=== PATIENT | female | born 1950 | race Caucasian/White ===

== ENCOUNTER 2019-06-08 08:37 | Outpatient (CLI) | payer MEDICARE ==
--- NOTE | 2019-06-08 10:03 | RAD ---
ESOPHAGRAM: HISTORY: 69-year-old female with gastroesophageal reflux. Patient had a gastric banding procedure don e in the past. FINDINGS: Swallowing was grossly normal. The positioning of the gastric band appears appropriate. A moderate-si zed hiatal hernia is present with slow passage of contrast into the stomach via the gastric banding site. No contrast extravasation is seen.
== END 2019-06-08 08:38 | disposition home or self-care (01) ==
LOC: RAD 08:37
PROVIDERS: ATTEND Surgery
DX: K21.9 Gastro-esophageal reflux disease without esophagitis (principal)
CPT/HCPCS: 74220

== ENCOUNTER 2019-10-23 08:24 | Day surgery (SDC) | payer OTHER ==
[2019-10-20 15:34] VITALS: BMI 33.6
--- NOTE | 2019-10-23 08:17 | HP ---
CHIEF COMPLAINT: Severe reflux. HISTORY OF PRESENT ILLNESS: The patient is a 69-year-old female with a lap band, but having tremendous reflux. She had her band emptied. She continues to have reflux. She is here to have her band and port removed. PAST MEDICAL HISTORY: Obesity. PAST SURGICAL HISTORY: Lap band, bilateral knee replacement, hysterectomy, and left shoulder surgery. MEDICATIONS: Nexium. ALLERGIES: SHE HAS NO KNOWN DRUG ALLERGIES. FAMILY HISTORY: Father of lung cancer. Mother was . SOCIAL HISTORY: She is . No tobacco. No alcohol. PHYSICAL EXAMINATION: VITAL SIGNS: Height 62, weight 182, and body mass index 33.2. GENERAL: Well-developed, well-nourished female, in no apparent distress. HEENT: Unremarkable. LUNGS: Clear. HEART: Regular rate and rhythm. ABDOMEN: Soft, nondistended, and nontender. No masses or hernias. EXTREMITIES: Good pulses. No pedal edema. ASSESSMENT: Lap band dysfunction with reflux. PLAN: Laparoscopic removal of lap band and port. CONSENT: I have discussed planned procedure as well as risk of bleeding, infection, injury to esophagus, spleen, loops of bowel, and need to open. She understands and gives informed consent. Job ID: [id number]
[2019-10-23] MEDS ORDERED: Heparin 5,000 UNITS/ML VIAL ONE (08:40)
[2019-10-23] MEDS ORDERED: Fentanyl 100 MCG/2 ML VIAL ONE (08:53)
[2019-10-23] MEDS ORDERED: Midazolam HCl 2 mg/2 ml Vial ONE (08:53)
[2019-10-23] MEDS ORDERED: HYDROmorphone 0.5 MG/0.5 ML SYRINGE ONE (08:54)
[2019-10-23] MEDS ORDERED: Dexamethasone 4 mg/ml Vial ONE (08:54)
[2019-10-23] MEDS ORDERED: SUGAMMADEX SODIUM 200 MG/2 ML VIAL ONE (08:54)
[2019-10-23] MEDS ORDERED: Lidocaine 1% w/Epinephrine 1:100K 20 ML VIAL ONE (08:55)
[2019-10-23] MEDS ORDERED: Bupivacaine 0.25% HCL 30 ML VIAL ONE (08:55)
--- NOTE | 2019-10-23 11:37 | OP ---
DATE OF PROCEDURE: 10/23/2019 PREOPERATIVE DIAGNOSIS: Severe gastroesophageal reflux. PROCEDURE PERFORMED: Laparoscopic removal of band and port. INDICATIONS: This is a 69-year-old female, who has had a Lap-band many years ago, recently developed severe reflux that persisted despite the band being empty. FINDINGS: Intact system. DESCRIPTION OF PROCEDURE: After informed consent was obtained, the patient was taken to the operating room, given general endotracheal anesthesia. She was placed in supine position. Abdomen was prepped and draped in usual fashion. Local anesthesia infiltrated subcutaneously and deep. A 5 mm incision was performed approximately 8-inch below the xiphoid slightly to the left. Veress needle inserted. Drop test performed. Pneumoperitoneum was created to a volume of 2 L of carbon dioxide. Utilizing a bladeless 5-mm trocar and 0-degree laparoscope, direct visual entry in abdominal cavity was performed. Pneumoperitoneum was then created to a pressure of 15 mmHg and the patient placed in steep reverse Trendelenburg position. Brady liver retractor inserted. Left lobe of liver retracted superiorly. The tubing was found. Under direct vision, a 12 mm port was placed, where the port was coming in the left upper quadrant and second 5 mm port was placed just lateral to the falciform. The tubing grasped and divided proximal to the joining pin. Then, the tubing was traced down to the buckle. The buckle was dissected out using blunt and sharp dissection. The buckle was opened. The capsule opened utilizing both electrocautery as well as the LigaSure. The band was then removed from around the stomach and removed from the abdomen. Hemostasis was assured. The abdomen was decompressed, scope removed as well as retractors. Then, the skin incision was enlarged where the port was. The port was dissected out sharply and sent to Pathology for further analysis. Hemostasis was assured. Subcu reapproximated with interrupted 3-0 Vicryl. Skin closed with interrupted 4-0 Rapide. Dermabond applied. The patient tolerated the procedure well and transferred to Recovery in good condition. Sponge and needle count verified correct x2. Job ID: [id number]
[2019-10-23] MEDS ORDERED: Dexamethasone 20 MG/5 ML VIAL ONE (13:49)
[2019-10-23] MEDS ORDERED: Ondansetron PF 4 MG/2 ML Vial ONE (13:49)
[2019-10-23] MEDS ORDERED: ePHEDrine/0.9% NaCl/PF SYRINGE 50 mg/10 ml ONE (13:49)
[2019-10-23] MEDS ORDERED: Rocuronium Bromide 10 MG/ML (10ML VIAL) ONE (13:49)
[2019-10-23] MEDS ORDERED: PROPOFOL 200 MG/20 ML VIAL ONE (13:49)
== END 2019-10-23 12:12 | disposition home or self-care (01) ==
LOC: SDC 08:24
PROVIDERS: ATTEND Surgery
PROC: 0DP64CZ Removal of Extraluminal Device from Stomach, Percutaneous Endoscopic Approach (ICD-10-PCS; principal; 2019-10-23)
DX: T85.858A Stenosis due to other internal prosthetic devices, implants and grafts, initial encounter (principal); K21.9 Gastro-esophageal reflux disease without esophagitis; E66.9 Obesity, unspecified; Z68.33 Body mass index [BMI] 33.0-33.9, adult
CPT/HCPCS: J0690; J1100; J1170; J1644; J2250; J2405; J2704; J3010; S0020

== ENCOUNTER 2019-11-21 12:55 | Outpatient (CLI) | payer OTHER | END 2019-11-21 12:56 | disposition home or self-care (01) | LOC: DTY/OP 12:55 | PROVIDERS: ATTEND Surgery | DX: E66.01 Morbid (severe) obesity due to excess calories (principal) | CPT/HCPCS: 97802 ==

== ENCOUNTER 2020-06-14 06:57 | Outpatient (CLI) | payer MEDICARE, OTHER ==
--- NOTE | 2020-06-14 13:16 | RAD ---
CHEST 2 VIEWS: Date: 06/14/2020 HISTORY: Preoperative evaluation. FINDINGS: Moderate sized hiatal hernia. Heart size is normal. The lungs are clear of acute process. Mild biapic al pleural thickening. IMPRESSION: 1. Moderate size hiatal hernia. 2. Atherosclerosis of aorta with ectasia. 3. Mild biapical pleural thickening. 4. No significant acute intrathoracic disease. POS: RRE
[2020-06-14 15:09] LABS: Hemoglobin A1c 5.7 % (4.0-6.0)
[2020-06-14 15:20] LABS: Band 3 % (5-11); Eosinophils 2 % (0-10); Hemoglobin 11.2 g/dL (12.0-16.0); Hypochromia SLIGHT = 6-15 cells (100X) (0-5/hpf); Lymphocytes 11 % (21-51); MDiff Complete? YES; Mean Corpuscular Hemoglobin 25.4 pg (27.0-31.0); Mean Corpuscular Volume 82.1 fL (78.0-98.0); Mean Platelet Volume 8.1 fL (7.4-10.4); Monocytes 7 % (0-10); Neutrophil 77 % (42-75); Platelet Count 296 thou/uL (130-400); Platelet Morphology Comment Appears Adequate; Polychromasia SLIGHT = 2-3 cells (100X) (0-2/hpf); RBC Distribution Width 14.1 % (11.5-14.5); Red Blood Cell (RBC) Count 4.39 mill/uL (4.20-5.40); White Blood Cell (WBC) Count 11.2 thou/uL (4.8-10.8)
[2020-06-14 16:07] LABS: ALT (SGPT) 12 U/L (8-55); AST (SGOT) 19 U/L (5-34); Albumin 4.4 g/dL (3.4-4.8); Alkaline Phosphatase 101 U/L (40-110); Anion Gap 17 mmol/L (10-20); BUN (Urea Nitrogen) 16 mg/dL (9.8-20.1); Bilirubin, Total 0.3 mg/dL (0.2-1.2); Calc. Creatinine Clearance 0 mL/min (70-130); Calcium 9.1 mg/dL (7.8-10.44); Carbon Dioxide 24 mmol/L (23-31); Chloride 103 mmol/L (98-107); Estimated GFR-MDRD 66; Globulin 3.2 g/dL (2.4-3.5); Glucose 88 mg/dL (80-115); Potassium 4.2 mmol/L (3.5-5.1); Protein, Total 7.6 g/dL (6.0-8.3); Sodium 140 mmol/L (136-145)
[2020-06-15 12:19] LABS: SARS-CoV-2 MS2 Positive; SARS-CoV-2 N Gene Negative; SARS-CoV-2 S Gene Negative; SARS-CoV-2 by NAA Not Detected (NotDetected); SARS-CoV-2 orf1ab Negative
== END 2020-06-14 06:58 | disposition home or self-care (01) ==
LOC: LABBT 06:57 → SCSRAD 06:58
PROVIDERS: ATTEND Surgery
DX: Z01.818 Encounter for other preprocedural examination (principal); Z20.828 Contact with and (suspected) exposure to other viral communicable diseases; E11.9 Type 2 diabetes mellitus without complications; M19.90 Unspecified osteoarthritis, unspecified site; K44.9 Diaphragmatic hernia without obstruction or gangrene; I70.0 Atherosclerosis of aorta; I77.819 Aortic ectasia, unspecified site; J92.9 Pleural plaque without asbestos; Z68.39 Body mass index [BMI] 39.0-39.9, adult
CPT/HCPCS: 71046; 80053; 83036; 85025; 87635; 93005; 93010; U0003

== ENCOUNTER 2020-06-14 11:45 | Inpatient (IN) | payer MEDICARE, OTHER ==
[2020-06-19] MEDS ORDERED: Heparin 5,000 UNITS/ML VIAL ONE (08:34)
[2020-06-19] MEDS ORDERED: Bupivacaine 0.25% HCL 30 ML VIAL ONE (09:55)
[2020-06-19] MEDS ORDERED: Lidocaine 1% w/Epinephrine 1:100K 20 ML VIAL ONE (09:55)
[2020-06-19] MEDS ORDERED: EPHEDRINE 25 MG/5 ML SYRINGE ONE (09:59)
[2020-06-19] MEDS ORDERED: Glycopyrrolate 0.2 MG/ML 5 ML SYRINGE ONE (09:59)
[2020-06-19] MEDS ORDERED: Ketorolac Tromethamine 30 MG/ML VIAL ONE (09:59)
[2020-06-19] MEDS ORDERED: Ondansetron PF 4 MG/2 ML Vial ONE (09:59)
[2020-06-19] MEDS ORDERED: Labetalol HCl 100 MG/20 ML VIAL ONE (09:59)
[2020-06-19] MEDS ORDERED: PROPOFOL 200 MG/20 ML VIAL ONE (09:59)
[2020-06-19] MEDS ORDERED: Rocuronium Bromide 10 MG/ML (10ML VIAL) ONE (09:59)
[2020-06-19] MEDS ORDERED: Lidocaine 1% PF 5 ML VIAL ONE (09:59)
[2020-06-19] MEDS ORDERED: Fentanyl 100 MCG/2 ML VIAL ONE (10:24)
[2020-06-19] MEDS ORDERED: SUGAMMADEX SODIUM 200 MG/2 ML VIAL ONE (10:25)
[2020-06-19] MEDS ORDERED: Ondansetron PF 4 MG/2 ML Vial IVP PRN ×2 (12:14→12:41)
[2020-06-19] MEDS ORDERED: hydrALAZINE 20 MG/ML VIAL SLOW IVP PRN (12:14)
[2020-06-19] MEDS ORDERED: diphenhydrAMINE 50 MG/ML VIAL IVP PRN (12:14)
[2020-06-19] MEDS ORDERED: Dextrose 5% in Water 1,000 ML IV PRN (12:14)
[2020-06-19] MEDS ORDERED: Dextrose 50% Abboject 50 ML SYRINGE SLOW IVP PRN (12:14)
[2020-06-19] MEDS ORDERED: Promethazine HCl 25 MG/ML VIAL IM PRN ×3 (12:14→12:41)
[2020-06-19] MEDS ORDERED: Hydrocodone-Acetamin 15 ML UDCUP PO PRN (12:14)
[2020-06-19] MEDS ORDERED: Meperidine HCl/PF 25 MG/ML VIAL SLOW IVP PRN (12:33)
[2020-06-19] MEDS ORDERED: HYDROmorphone 2 MG/ML VIAL SLOW IVP PRN (12:33)
[2020-06-19] MEDS ORDERED: Ondansetron HCl/PF 4 MG/2 ML Vial IVP PRN (12:33)
[2020-06-19] MEDS ORDERED: Ketorolac Tromethamine 30 MG/ML VIAL IVP PRN (12:33)
[2020-06-19] MEDS ORDERED: Promethazine HCl 25 MG/ML VIAL SLOW IVP PRN (12:33)
[2020-06-19] MEDS ORDERED: diphenhydrAMINE 25 MG CAP PO PRN (12:41)
[2020-06-19] MEDS ORDERED: Naloxone HCl 0.4 mg/ml Vial IV PRN (12:41)
[2020-06-19] MEDS ORDERED: fentaNYL Citrate/PF 2,000 MCG in Sodium Chloride 0.9% 60 ML IV PRN (12:41)
[2020-06-19] MEDS ORDERED: diphenhydrAMINE 50 MG/ML VIAL IM/IV PRN (12:41)
[2020-06-19] MEDS ORDERED: Zolpidem Tartrate 5 MG TAB PO PRN (12:41)
[2020-06-19] MEDS ORDERED: hydrALAZINE 20 MG/ML VIAL ONE (13:16)
[2020-06-19] MEDS ORDERED: Promethazine HCl 25 MG/ML VIAL ONE (13:19)
[2020-06-19 16:29] VITALS: BMI 38.7
[2020-06-19] MEDS: D5 1/2 NS w/20 mEq KCL 1,000 ML IV SCH ×2 (18:40→20:02)
[2020-06-20 06:33] LABS: #Lymphocytes 1.1 thou/uL (1.20-3.40); #Monocytes 0.8 thou/uL (0.11-0.59); #Neutrophils 10.5 thou/uL (1.40-6.50); %Basophils 0.2 % (0.0-1.0); %Eosinophils 0.1 % (0.0-10.0); %Lymphocytes 8.5 % (21.0-51.0); %Monocytes 6.6 % (0.0-10.0); %Neutrophils 84.6 % (42.0-75.0); Hemoglobin 9.5 g/dL (12.0-16.0); Mean Corpuscular HGB CONC 30.8 g/dL (32.0-36.0); Mean Corpuscular Hemoglobin 25.4 pg (27.0-31.0); Mean Corpuscular Volume 82.5 fL (78.0-98.0); Mean Platelet Volume 8.1 fL (7.4-10.4); Platelet Count 227 thou/uL (130-400); RBC Distribution Width 14.8 % (11.5-14.5); Red Blood Cell (RBC) Count 3.73 mill/uL (4.20-5.40); White Blood Cell (WBC) Count 12.5 thou/uL (4.8-10.8)
[2020-06-20 06:49] LABS: Anion Gap 12 mmol/L (10-20); BUN (Urea Nitrogen) 7 mg/dL (9.8-20.1); Calc. Creatinine Clearance 109 mL/min (70-130); Calcium 7.9 mg/dL (7.8-10.44); Carbon Dioxide 22 mmol/L (23-31); Chloride 105 mmol/L (98-107); Estimated GFR-MDRD 79; Glucose 142 mg/dL (80-115); Potassium 3.8 mmol/L (3.5-5.1); Sodium 135 mmol/L (136-145)
[2020-06-20] MEDS: D5 1/2 NS w/20 mEq KCL 1,000 ML IV SCH ×3 (07:05→23:43)
[2020-06-20] MEDS ORDERED: Ketorolac Tromethamine 30 MG/ML VIAL IVP PRN (08:59)
[2020-06-20] MEDS: Pantoprazole 40 MG VIAL IVP SCH (09:22)
[2020-06-20] MEDS: Enoxaparin Sodium 40 MG/0.4 ML SYRINGE SC SCH (09:22)
[2020-06-20] MEDS: SUMAtriptan Succinate 6 MG/0.5 ML VIAL SC PRN ×2 (09:22→21:17)
--- NOTE | 2020-06-20 14:04 | OP ---
DATE OF PROCEDURE: 06/19/2020 PREOPERATIVE DIAGNOSIS: Morbid obesity. PROCEDURES PERFORMED: 1. Laparoscopic hiatal hernia repair. 2. Sleeve gastrectomy. 3. Esophagogastroscopy. INDICATIONS: 70-year-old female. She had a previous lap band that failed and was removed. She is morbidly obese, has attempted multiple weight loss programs without success. FINDINGS: She had a moderate-sized hiatal hernia, a 38-[place]oven[place] bougie was used. DESCRIPTION OF PROCEDURE: After informed consent was obtained, the patient was taken to the operating room, given general endotracheal anesthesia, and placed in supine position. Abdomen was prepped and draped in the usual fashion. Local anesthesia was infiltrated subcutaneously and deep. A 12-mm incision was performed approximately 8 inches below the xiphoid, slightly to the left. Veress needle inserted. Drop test performed. Pneumoperitoneum was created to a pressure of 15 mmHg. A 0-degree laparoscope inserted under direct vision. A Brady liver retractor inserted. The left lobe of the liver retracted superiorly. The pylorus identified. Two 12s placed on the left and one on the right. The omentum was taken down 5 cm from the pylorus utilizing the LigaSure. It was dissected to include the short gastrics and then the left crura was defined. She had a hiatal hernia, so I had to open up the hiatus circumferentially and reduce the stomach. Then, a posterior crural plication was performed utilizing 0 Ethibond and the Sew-Right and Ti-KNOT device. Hemostasis was assured. Once the hiatal hernia was repaired, the bougie was advanced and a linear 60 mm green load stapler used to divide the antrum to the bougie, gold load along the bougie, and a series of blues through the angle of His. Intraoperative endoscopy performed. The video endoscope was inserted under direct vision, advanced into the sleeve. The staple line inspected. There was no bleeding. Staple line then tested by inflating the new stomach with pressurized air under water. There was no air leak. The stomach decompressed. Scope removed. The remnant stomach removed from the abdomen through the left lateral port site. Trocars and retractors removed. Hemostasis was assured. The skin closed with interrupted 4-0 Rapide. Dermabond applied. The patient tolerated the procedure well, transferred to Recovery in good condition. Sponge and needle count verified correct x2. Job ID: [id number]
[2020-06-20] MEDS: Hydrocodone-Acetamin 15 ML UDCUP PO PRN ×2 (15:47→23:46)
--- NOTE | 2020-06-20 16:53 | PRG ---
DATE OF SERVICE: 06/20/2020 SUBJECTIVE: The patient is postop day 1 from sleeve gastrectomy. She had a terrible migraine headache that was unrelenting. Toradol did not help. I windup giving her some Imitrex, it helps some. She is now starting to take some p.o., still not able to get enough and to go home, but she is feeling better. OBJECTIVE: VITAL SIGNS: On exam, her temperature is 98.2, pulse 71, and blood pressure 147/83. GENERAL: She is looking better. ABDOMEN: Soft, nondistended, and nontender. LABORATORY DATA: Her white count is 12.5, H and H are 9.5 and 30, and platelet count 227. Electrolytes are fine. ASSESSMENT: 1. Postoperative edema. 2. Migraine headache. PLAN: We will work on her p.o. fluid intake. When it is adequate, we will discharge home. Job ID: [id number]
[2020-06-21] MEDS: D5 1/2 NS w/20 mEq KCL 1,000 ML IV SCH ×2 (06:37→14:26)
[2020-06-21] MEDS: Enoxaparin Sodium 40 MG/0.4 ML SYRINGE SC SCH (09:41)
[2020-06-21] MEDS: SUMAtriptan Succinate 6 MG/0.5 ML VIAL SC PRN (09:41)
[2020-06-21] MEDS: Pantoprazole 40 MG VIAL IVP SCH (09:41)
[2020-06-21 12:39] VITALS: BP 137/85; TEMP 98.6
[2020-06-21] MEDS: Hydrocodone-Acetamin 15 ML UDCUP PO PRN (14:27)
--- NOTE | 2020-06-23 11:24 | DIS ---
DATE OF ADMISSION: 06/19/2020 DATE OF DISCHARGE: 06/21/2020 DISCHARGE DIAGNOSES: Morbid obesity and hiatal hernia. PROCEDURES DURING ADMISSION: Laparoscopic hiatal hernia repair, sleeve gastrectomy, intraoperative esophagogastroscopy. HOSPITAL COURSE: The patient was admitted, taken to the operating room, where she underwent sleeve and repair of the hiatal hernia. Postoperatively, she had some dysphagia due to swelling from the dissection, that has now resolved. She is tolerating liquids well. She is voiding well. Pain is controlled on p.o. medications. She also had a migraine headache that required treatment, that is better now. She is discharged home on hydrocodone and Zofran. She will follow up with me in 2 weeks. Job ID: [id number]
== END 2020-06-21 14:28 | disposition home or self-care (01) | DRG 621 ==
LOC: SURG A 06-19 08:13 → SURG B 06-19 14:00
PROVIDERS: ADMIT Surgery; ATTEND Surgery
PROC: 0DB64Z3 Excision of Stomach, Percutaneous Endoscopic Approach, Vertical (ICD-10-PCS; principal; 2020-06-19)
PROC: 0BQT4ZZ Repair Diaphragm, Percutaneous Endoscopic Approach (ICD-10-PCS; 2020-06-19)
PROC: 0DJ08ZZ Inspection of Upper Intestinal Tract, Via Natural or Artificial Opening Endoscopic (ICD-10-PCS; 2020-06-19)
DX: E66.01 Morbid (severe) obesity due to excess calories (principal); K44.9 Diaphragmatic hernia without obstruction or gangrene; M19.90 Unspecified osteoarthritis, unspecified site; I10 Essential (primary) hypertension; K21.9 Gastro-esophageal reflux disease without esophagitis; R60.9 Edema, unspecified; G43.909 Migraine, unspecified, not intractable, without status migrainosus; Z68.39 Body mass index [BMI] 39.0-39.9, adult; Z90.710 Acquired absence of both cervix and uterus
CPT/HCPCS: 36415; 80048; 85025; 88307; 88312; C9113; J0360; J0690; J1644; J1650; J1885; J2405; J2550; J2704; J3010; J3030; J3480; S0020